=== PATIENT | female | born 2000 | race Caucasian/White ===

== ENCOUNTER 2023-05-03 20:30 | Emergency (ER) | payer OTHER, SELFPAY ==
[2023-05-03 20:37] VITALS: BP 116/80; PULSE 97; RESP 16; O2SAT 97; BMI 31.1
--- NOTE | 2023-05-03 20:51 | CRLHL7_ITS ---
For Patients: As a result of the Cures Act, medical imaging exams and procedure reports are released immediately into your electronic medical record. You may view this report before your referring provider. If you have questions, please contact your health care provider. INDICATION: Twisted ankle, injury today, fall, pain TECHNIQUE: Ankle radiograph 3 views left COMPARISON: None FINDINGS: Bone: No acute fractures or aggressive bone lesions are identified. Joint: The ankle mortise joint and the visualized hindfoot joints are unremarkable in appearance. No significant ankle effusion is seen. Soft tissue: The Kager fat pad and the Achilles` tendon are normal in appearance. No radiopaque foreign bodies are seen. IMPRESSION: 1. No acute osseous injuries or abnormalities are noted. Dictated by: Sher Verdin MD @ 05/03/2023 21:16:46 (Electronically Signed)
--- NOTE | 2023-05-03 21:07 | ED_ITS ---
HPI - General Adult General Chief complaint: Extremity Pain/Injury, Lower Stated complaint: Twisted L ankle Time Seen by Provider: 05/03/23 20:51 Source: patient Mode of arrival: ambulatory Limitations: no limitations History of Present Illness HPI narrative: 22-year-old female with no chronic medical problems presents to the ED couple of hours after an inversion-type left ankle injury going down the stairs. Has tenderness at both the medial and lateral malleolus area, dull and achy, worse with ambulation and palpation. No swelling to the lateral malleolus area. Has not taken any medication to help with her symptoms prior to presentation. No prior history of ankle surgery or major trauma in the past. Does not take any significant blood thinners. No numbness or tingling. No other areas of injury besides small abrasion on her left elbow, no difficulty moving the elbow or any other severe pain or head injury. No intoxication tonight. Past medical history she reports is notable for depression. Long-term medications are bupropion and Pristiq. No allergies. ROS notable for the musculoskeletal symptoms as below. Denies problems with the other ankle, wrists elbows, other skin, neurological or generalized complaints today. Related Data Home Medications Medication Instructions Recorded Confirmed bupropion HCl 300 mg 24 hr tablet, 300 mg PO DAILY 05/03/23 05/03/23 extended release desvenlafaxine succinate 50 mg 50 mg PO DAILY 05/03/23 05/03/23 tablet,extended release 24 hr Allergies Allergy/AdvReac Type Severity Reaction Status Date / Time sumatriptan Allergy Severe Anaphylaxis Verified 05/03/23 20:41 PFSH PFS Social History Smoking Status: Never smoker Do you use any of these nicotine containing products: None Second hand tobacco smoke exposure: No How often do you have a drink containing alcohol: never AUDIT-C Alcohol total score: 0 Non-prescribed substance use: denies use Exam Const: Vital Signs, click to edit/add: Vital Signs - 24 hr 05/03/23 20:37 Pulse Rate [Pulse Oximeter] 97 Respiratory Rate 16 Blood Pressure [Ri ght Upper Arm] 116/80 Pulse Oximetry 97 Oxygen Delivery Me thod Room Air Documenting provider has reviewed patient's vital signs: yes Common normals: no apparent distress General appearance: cooperative, comfortable and well kempt HENMT: Common normals: normocephalic and head/scalp atraumatic Head and scalp: normocephalic and atraumatic Face and sinus: normal facial exam Eye: Common normals: conjunctivae normal General eye: normal appearance of both eyes Conjunctiva: conjunctiva(e) normal Resp: Common normals: normal respiratory effort Effort & inspection: able to speak in complete sentences Extremity: Other: Right ankle with normal appearance, normal range of motion. Left ankle with very slight swelling to the medial malleolus, mild bruising. Palpable tenderness along the with deltoid ligament area laterally and just distal to the medial malleolus but no deformity. minimal swelling. No broken skin. Mild bruising along the lateral malleolus. No tenderness to the base of the 5th metatarsal. The remainder of the foot exam is normal. Toes are normal with normal range of motion, normal sensation, good pedal pulses. No tenderness to the midfoot or forefoot. Normal heel exam. Tibia and fibula proximal to the ankle are normal. Moves the knee freely. Neuro: Speech: speech normal Gait (neuro): normal gait Motor exam: no movement abnormalities noted Psych: Common normals: speech normal Appearance: well kempt Speech: normal speech Mood and affect: euthymic mood Insight: insight good Judgement: judgment good Skin: Common normals: no rashes or lesions noted General skin exam: no rashes or lesions noted Course Course ED Course: Suspect sprain but meets audible criteria for x-ray. Will give 600 mg of oral ibuprofen and order left three view x-ray. Reevaluation(s) Time of Reevaluation #1: 21:28 Reevaluation #1: Findings reviewed with patient. Recommended brace, crutches as per discharge instructions. Tylenol and ibuprofen, ice as needed. Overall sprain seems quite mild. Follow-up in 2 weeks if not improving as expected. Activity as tolerated after 48 hours. Rest and crutches for the 1st 48 hours. May use crutches for up to 1 week if needed based on discomfort level. Vital Signs Vital signs: Initial Vital Signs Temperature Source Temporal Artery Scan 05/03/23 20:37 Pulse Rate 97 05/03/23 20:37 Respiratory Rate 16 05/03/23 20:37 Blood Pressure 116/80 05/03/23 20:37 Blood Pressure Mean 92 05/03/23 20:37 Blood Pressure Position Sitting 05/03/23 20:37 Pulse Oximetry 97 05/03/23 20:37 Oxygen Delivery Method Room Air 05/03/23 20:37 Vital Signs Pulse Rate 97 05/03/23 20:37 Respiratory Rate 16 05/03/23 20:37 Blood Pressure 116/80 05/03/23 20:37 Pulse Oximetry 97 05/03/23 20:37 Oxygen Delivery Method Room Air 05/03/23 20:37 Pulse Rate 97 05/03/23 20:37 Respiratory Rate 16 05/03/23 20:37 Blood Pressure 116/80 05/03/23 20:37 Pulse Oximetry 97 05/03/23 20:37 Oxygen Delivery Method Room Air 05/03/23 20:37 Medical Decision Making Imaging Data Ankle x-ray: Attestation: I have reviewed the pertinent imaging results. My impression: No fracture Radiologist's impression: IMPRESSION: 1. No acute osseous injuries or abnormalities are noted. Discharge Plan Discharge Clinical Impression: Ankle sprain and strain Patient Disposition: Home, Self-Care Condition: Stable Instructions: Ankle Sprain (ED) Additional Instructions: As we discussed, there are no signs of fracture on your x-ray, this is great news. Sprains can be just as painful as fractures. Sprains are stretch injuries to the ligaments which are the structures that joint the bones together. These can take several months to fully heal but are typically most painful just for a couple of days. I would recommend Tylenol 1000 mg every 6 hours and or ibuprofen 600 mg every 6 hours for pain. Ice for 20-30 minutes 3-4 times per day as needed for discomfort. Swelling and bruising is normal. Crutches are optional but are unlikely to be needed for more than the next 48 hours. I would like for you to wear the brace for the next 2 weeks. Light duty only for the next 48 hours then increasing to as tolerated. If you are still having significant dysfunction after 2 weeks, please make a follow-up appointment. Activity Level: Activity as Tolerated Discharge Diet: Regular Prescriptions: No Action bupropion HCl 300 mg tablet extended release 24 hr 300 mg PO DAILY desvenlafaxine succinate 50 mg tablet extended release 24 hr 50 mg PO DAILY Stand Alone [facility] Inst[facility]
[2023-05-03] MEDS: IBUPROFEN 200 MG TABLET 600 MG PO (21:21)
== END 2023-05-03 21:38 | disposition home or self-care (01) ==
LOC: ED 21:28
PROVIDERS: Emergency Provider Family Medicine
DX: S93.402A Sprain of unspecified ligament of left ankle, initial encounter (principal)
CPT/HCPCS: 73610; 99283; A9270